=== PATIENT | male | born 1955 | race Caucasian/White ===

== ENCOUNTER 2016-09-23 07:05 | Day surgery (SDC) | payer BC ==
[2016-09-18 09:51] LABS: HEMATOCRIT 49.5 % (40.0-51.0); HEMOGLOBIN 16.2 g/dL (13.6-17.8)
[2016-09-18 10:06] LABS: BUN (BLOOD UREA NITROGEN) 11 MG/DL (6-23); CALCIUM, SERUM 8.8 MG/DL (8.5-10.4); CHLORIDE, SERUM 102 MMOL/L (96-112); CO2 (CARBON DIOXIDE) 31 MMOL/L (24-34); CREATININE 1.18 MG/DL (0.70-1.30); GFR AFRICAN AMERICAN 76 ML/MIN (>=60); GFR NON AFRICAN AMERICAN 66 ML/MIN (>=60); GLUCOSE, SERUM 125 MG/DL (60-99); POTASSIUM, SERUM 4.2 MMOL/L (3.5-5.3); SODIUM, SERUM 136 MMOL/L (135-148)
--- NOTE | ~2016-09-23 | OP ---
Record Of Operation [facility] [address] [place]. [address] NAME: WILDER ESTRELLA : 53 STATUS : [facility]#: [id number] AGE: 61 ADM/REG DATE : 09/23/16 MR#: [id number] REPORT SERV DATE: 09/24/16 DICTATED BY: HAYDEE BARCLAY DATE: 09/23/16 REPORT STATUS : Draft TRANSCRIBED BY: MODL DATE: 09/23/16 DATE OF PROCEDURE: 09/23/2016 PREOPERATIVE DIAGNOSES: 1. Left mixed hearing loss. 2. 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 3. 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 POSTOPERATIVE DIAGNOSES: 1. Left mixed hearing loss. 2. 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 3. 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 PROCEDURE: 1. Left tympanoplasty with ossicular chain reconstruction using malleus to stapes Bojrab partial ossicular replacement prosthesis. 2. Left tragal perichondrial and cartilage graft harvest. SURGEON: Haydee Barclay M.D. ANESTHESIA: General. COMPLICATIONS: None. COUNTS: All counts were correct following the procedure. BLOOD LOSS: Minimal. PREOPERATIVE INFORMED CONSENT: We discussed the risks and benefits of surgery including, but not limited to bleeding, infection, possible postoperative taste distortion, possible hearing loss including total deafness, possible postoperative dizziness, possible failure of the graft requiring revision surgery, possible extrusion of the prosthesis requiring revision surgery, possible facial nerve injury resulting in temporary or permanent deficits and consent is on the chart. PROCEDURE IN DETAIL: The patient was brought to the operative suite, placed on the operative table in supine position. General endotracheal anesthesia was initiated without incident. The patient's left ear was cleaned, prepped, and draped in usual sterile fashion. Following this, the ear canal and the tragal region were injected approximately 3 mL of 1% lidocaine in 1:100,000 epinephrine for hemostasis. Following this, standard tympanomeatal flap was raised from the 6 o'clock to 12 o'clock position using a Sioux knife and a lancet knife entering the Turk space by lifting the anulus up inferiorly. The middle ear space was entered and noted to be moderate amount of adhesions. The inferior anulus was lifted up using a gimmick elevator than superiorly. There had been a previous atticotomy performed, then the incus was noted to be missing. The malleus to stapes prosthesis was noted to be displaced and then onto the promontory. This was carefully removed from the capitulum of Record Of Operation [place] [place] [address] [place]. [address] NAME: WILDER ESTRELLA : 53 STATUS : [facility] PAT#: [id number] AGE: 61 ADM/REG DATE : 09/23/16 MR#: [id number] REPORT SERV DATE: 09/24/16 DICTATED BY: HAYDEE BARCLAY DATE: 09/23/16 REPORT STATUS : Draft TRANSCRIBED BY: SENDY DATE: 09/23/16 the stapes from bow of the malleus. The adhesions in the middle ear space was then carefully removed using Robles needle and a 45-degree sharp pick. The malleus were skeletonized using 45 degree sharp pick and a Robles needle. The facial nerve was visualized and the tympanic segment was noted to be intact and non-dehiscent. Middle ear space was then filled with Adrenalin-soaked pledgets and attention was taken to the tragus. A 15 blade scalpel was used to make incision in the tragus and using curved iris scissors, the posterior aspect of the tragus was exposed, a 15 blade scalpel was used to make incision in the tragal perichondrium. Duckbill elevator was used lift up tragal perichondrium off the posterior aspect of the tragus and this was removed using curved iris scissors and placed in a vein, placed on the back table for later use. Two small pieces of cartilage were harvested by using a Duckbill elevator and placed in saline for later use. The tragal incision was closed using 5-0 plain gut suture and attention was taken back to the middle ear space. Using a malleus to stapes Bojrab partial ossicular prosthesis was obtained using the sizers that come with the prosthesis. It was determined that a 3.0 mm length will be appropriate for the prosthesis replacement. The actual prosthesis was cut to specific length of 3.0 mm. Turk space was then filled with small pieces of Gelfoam. The prosthesis was obtained. It was carefully placed on the capitulum of the stapes and then tucked gently underneath the mid portion of the malleus. The cartilage graft that had been obtained was carefully placed on the lateral aspect of the prosthesis and the perichondral graft obtained was draped across the cartilage graft and across the malleus and tucked in that position under all edges of the tympanic membrane. The flap was then laid back down in position after filling the middle ear space with further Gelfoam to hold the prosthesis and the cartilage graft in place. The lateral aspect of the ear drum as well as the ear canal was filled with more Gelfoam, moistened with saline out to the lateral aspect of the ear canal followed by bacitracin ointment and a standard mastoid dressing. The patient was awakened from anesthesia and taken to recovery room in stable condition. RAMYA/SENDY Haydee Barclay M.D. / [id number] CC: Tiffanie Alvarado M.D.
[~2016-09-23 07:05] MED LIST: BENICAR40 PO; KAPIDEX60 MG PO; NORV25 PO; SYNTHROID175 MCG PO
== END 2016-09-23 14:55 | disposition home or self-care (01) ==
LOC: SDC 07:05
PROVIDERS: Otolaryngology
PROC: 09W Ear, Nose, Sinus, Revision (ICD-10-PCS; 2016-09-23)
PROC: 09B1XZZ Excision of Left External Ear, External Approach (ICD-10-PCS; 2016-09-23)
PROC: 09U607Z Supplement Left Middle Ear with Autologous Tissue Substitute, Open Approach (ICD-10-PCS; principal; 2016-09-23 08:45)
DX: H90.72 Mixed conductive and sensorineural hearing loss, unilateral, left ear, with unrestricted hearing on the contralateral side (principal); H74.322 Partial loss of ear ossicles, left ear; T85.628A Displacement of other specified internal prosthetic devices, implants and grafts, initial encounter; I10 Essential (primary) hypertension; G47.33 Obstructive sleep apnea (adult) (pediatric); Z99.89 Dependence on other enabling machines and devices; K21.9 Gastro-esophageal reflux disease without esophagitis
CPT/HCPCS: 80048; 85014; 85018; 93005; A9270-GY; J0690; J2250; J2370; J2405; J2710; J3010